=== PATIENT | male | born 1960 | race Caucasian/White ===

== ENCOUNTER → 2021-02-25 01:02 | Outpatient (CLI) | payer OTHER, SELFPAY ==
[2021-02-25 17:52] LABS: SARS-CoV-2 RNA PCR Negative
== END ==
PROVIDERS: PCP Family Medicine; Visit Provider Internal Medicine Gastroenterology
DX: Z01.812 Encounter for preprocedural laboratory examination (principal); Z20.822 Contact with and (suspected) exposure to COVID-19
CPT/HCPCS: C9803; U0003; U0005

== ENCOUNTER 2021-02-28 00:50 | Day surgery (SDC) | payer OTHER, SELFPAY ==
[2021-02-20 15:21] VITALS: BMI 29.9
[2021-02-28 07:52] VITALS: BP 156/94; PULSE 70; RESP 20; TEMP 36.3; O2SAT 96
[2021-02-28] MEDS: LACTATED RINGERS 1,000 ML 150 ML IV CONT (07:56)
[2021-02-28 08:02] LABS: Glucose Point of Care 97 mg/dl (65-105)
--- NOTE | 2021-02-28 09:12 | WPDANESEPPF ---
Anes - Initial Pre Proc Eval Procedure: Operation Date: 02/28/21 09:15 Proposed Procedures p Screening Colonoscopy - Richie Hernadez MD Date/Time: 02/28/21 09:12 Surgeon: Richie Hernadez MD Pre Op Diagnosis: neoplasm screening Patient Data Age: 60 Gender: M Height: 1.93 m Weight: 105.2 kg Last Vital Signs Temp 97.4 F L 02/28/21 07:52 Pulse 70 02/28/21 07:52 Resp 20 02/28/21 07:52 BP 156/94 H 02/28/21 07:52 Pulse Ox 96 02/28/21 07:52 Allergies Allergy/AdvReac Type Severity Reaction Status Date / Time clarithromycin Allergy Mild Other Verified 02/28/21 07:51 Home Medications Medication Instructions Recorded Confirmed Type atorvastatin 10 mg tablet 10 mg PO DAILY #90 tablet 10/26/20 02/28/21 Rx lisinopril 5 mg tablet 5 mg PO .qd #90 tablet 10/26/20 02/28/21 Rx metformin 500 mg tablet 500 mg PO BID #90 tablet 10/26/20 02/28/21 Rx blood sugar diagnostic #100 ea 12/07/20 12/07/20 Rx Laboratory Tests 02/28/21 07:56 POC Capillary Glucose 97 mg/dl mg/dl (65-105) Patient hx anesthesia problems: none Family hx anesthesia problems: none PMFSH Past Medical History Medical History Metabolic syndrome Family History Family History Sibling Patient's brother is in good health Colon polyp Father Diabetes mellitus Hypertension Family history of elevated blood lipids Mother Diabetes mellitus Family history of elevated blood lipids Family history of arthritis Other Depression Family history of gout Social History Social History Smoking status: Former smoker Smoking end date: 07/15/17 Alcohol intake: current Alcohol use details: occasional use Substance use: never Substance use type: does not use Living arrangements: with family Additional living arrangements comments: lives with spouse Mendy Gender identity (if verbalized by the patient): Male Sexual Orientation (if Verbalized by the Patient): Straight or Heterosexual Spiritual care concerns: No Anes - Eval Final PreProcedure Day of Procedure 02/28/21 09:12 Patient weight: overweight Heart: regular rate and rhythm Lungs: clear to auscultation Airway: Mallampati scale class II Neurological: alert and oriented Last oral intake: >/= 8 hours ASA classification: III Emergent: no Anesthetic plan: proceed Anesthesia type and monitoring: general GIVS and standard monitoring Informed Consent: The patient's anesthetic plan and its attendant risks and benefits were discussed with the patient/family/POA. Questions were solicited and answers provided to the satisfaction of the patient/family/POA.
--- NOTE | 2021-02-28 09:16 | PM.HPGS ---
History of Present Illness History of Present Illness Consent: Risks, benefits, and alternatives have been discussed and questions answered. Patient agrees to proceed with procedure. Chief complaint: neoplasm screening Narrative: Shaq Gómez is a 60 year old male due to have another colonoscopy Review of Systems Constitutional: Constitutional: Denies headache(s) and Denies weakness Eyes: Eyes: Denies blurry vision ENT: Reports Normal hearing present, Denies headache(s) and Denies neck pain Cardiovascular: Cardiovascular: Denies chest pain and Denies dyspnea Respiratory: Respiratory: Denies dyspnea Gastrointestinal: Gastrointestinal: Reports no additional gastrointestinal complaints Genitourinary: Genitourinary: Denies dysuria Musculoskeletal: Musculoskeletal: Denies neck pain Integumentary/Breasts: Skin/Breast: Denies dry skin Neurologic: Reports Normal hearing present, Denies headache(s) and Denies weakness Psychiatric: Psychiatric: Denies anxiety Endocrine: Endocrine: Denies change in body appearance Hematologic/Lymphatic: Hematologic/Lymphatic: Denies easy bleeding Allergic/Immunologic: Allergic/Immunologic: Denies urticaria [facility] Past Medical History Medical History (Updated 02/28/21 @ 09:16 by Richie Hernadez MD) Colon cancer screening Metabolic syndrome Family History Family History Sibling Patient's brother is in good health Colon polyp Father Diabetes mellitus Hypertension Family history of elevated blood lipids Mother Diabetes mellitus Family history of elevated blood lipids Family history of arthritis Other Depression Family history of gout Social History Social History Smoking status: Former smoker Smoking end date: 07/15/17 Alcohol intake: current Alcohol use details: occasional use Substance use: never Substance use type: does not use Living arrangements: with family Additional living arrangements comments: lives with spouse Mendy Gender identity (if verbalized by the patient): Male Sexual Orientation (if Verbalized by the Patient): Straight or Heterosexual Spiritual care concerns: No Meds Home Medications and Allergies Home Medications Medication Instructions Recorded Confirmed Type atorvastatin 10 mg tablet 10 mg PO DAILY #90 tablet 10/26/20 02/28/21 Rx lisinopril 5 mg tablet 5 mg PO .qd #90 tablet 10/26/20 02/28/21 Rx metformin 500 mg tablet 500 mg PO BID #90 tablet 10/26/20 02/28/21 Rx blood sugar diagnostic #100 ea 12/07/20 12/07/20 Rx Allergies Allergy/AdvReac Type Severity Reaction Status Date / Time clarithromycin Allergy Mild Other Verified 02/28/21 07:51 Vital Signs Vital Signs - 24 hr 02/28/21 07:52 Temperature 97.4 F L Pulse Rate 70 Respiratory Rate 20 Blood Pressure 156/94 H Pulse Oximetry 96 Exam Const: General: comfortable and no acute distress HENMT: General nose exam: Normal nares present Eyes: General: appearance normal, both eyes and all related structures Neck: Neck: no JVD Resp: Auscultation: clear to auscultation bilaterally Cardio: Rate: regular rate Rhythm: regular rhythm GI: Inspection: non-distended GI Palp: Yes Soft to palpation Skin: General skin exam: normal color Neuro: General: gait normal Speech: normal speech Extrem: General: normal to inspection Psych: Mental Status: mental status grossly normal Assessment and Plan Assessment and plan (1) Colon cancer screening: Code(s): Z12.11 - Encounter for screening for malignant neoplasm of colon Status: Acute Assessment and Plan: colonoscopy
[2021-02-28 09:47] VITALS: BP 120/79; PULSE 67; RESP 14; O2SAT 96
[2021-02-28 09:57] VITALS: BP 114/79; PULSE 65; RESP 13; O2SAT 98
[2021-02-28 10:07] VITALS: BP 111/81; PULSE 54; RESP 16; O2SAT 97
== END 2021-02-28 10:20 | disposition home or self-care (01) ==
PROVIDERS: PCP Family Medicine; Visit Provider Internal Medicine Gastroenterology
PROC: 0DJD8ZZ Inspection of Lower Intestinal Tract, Via Natural or Artificial Opening Endoscopic (ICD-10-PCS; CPT 45378; principal; 2021-02-28 09:15)
DX: Z12.11 Encounter for screening for malignant neoplasm of colon (principal); D12.3 Benign neoplasm of transverse colon; D12.2 Benign neoplasm of ascending colon; E88.81 Metabolic syndrome and other insulin resistance; K57.30 Diverticulosis of large intestine without perforation or abscess without bleeding
CPT/HCPCS: 45385; 45380; 82948; 88305; C9803; J2001; J2704; J7120; U0003; U0005